=== PATIENT | female | born 1995 | race Caucasian/White ===

== ENCOUNTER 2017-11-27 04:46 | Emergency (ER) | payer OTHER, SELFPAY ==
[2017-11-27] MEDS: NS 1,000 ML IV ×2 (06:15)
[2017-11-27] MEDS: METOCLOPRAMIDE INJ 10MG/2ML VIAL (J2765) IV ×2 (06:15)
== END 2017-11-27 06:26 | disposition home or self-care (01) ==
LOC: M ED 04:46
DX: F10.929 Alcohol use, unspecified with intoxication, unspecified (principal); Z88.5 Allergy status to narcotic agent; Z91.040 Latex allergy status
CPT/HCPCS: 99283

== ENCOUNTER 2018-03-27 16:00 | Emergency (ER) | payer OTHER | END 2018-03-27 17:00 | disposition left against medical advice (07) | LOC: M ED 16:00 | DX: Z53.21 Procedure and treatment not carried out due to patient leaving prior to being seen by health care provider (principal) ==

== ENCOUNTER → 2018-11-04 | Outpatient (CLI) | payer OTHER ==
[~2018-11-04] MED LIST: MELA10TA4 PO; OLAN5TAB PO
[2018-11-04 11:34] LABS: HCG, SERUM QUALITATIVE POSITIVE (NEGATIVE)
[2018-11-04 11:35] LABS: HCG, SERUM QUANTITATIVE 71 MIU/ML
== END ==
LOC: M LAB 10:43
PROVIDERS: ATTEND Physician Assistant Medical
DX: N91.2 Amenorrhea, unspecified (principal)

== ENCOUNTER 2019-05-22 21:01 | Outpatient (CLI) | payer OTHER ==
[~2019-05-22] VITALS: Ht 154.9 cm; Wt 86.6 kg
[2019-05-22 21:15] VITALS: BP 110/66
[2019-05-22] MEDS ORDERED: LOPERAMIDE 2 MG CAP As Ordered ONE (21:53)
[2019-05-22] MEDS ORDERED: LOPERAMIDE 2 MG CAP PO ONE (22:00)
[2019-05-22] MEDS ORDERED: LOMOTIL 2.5MG/0.025MG TABLET PO ONE (22:00)
[2019-05-22 22:24] LABS: HEMOGLOBIN 13.3 g/dl (12.0-15.5); MEAN CORPUSCULAR HEMOGLOBIN 34.4 pg (27.0-33.0); MEAN CORPUSCULAR VOLUME 98.2 fl (80.0-96.0); PLATELET COUNT, AUTOMATED 241 10^3/uL (150-450); RED BLOOD COUNT 3.87 10^6/uL (4.00-5.40); WHITE BLOOD COUNT 9.8 10^3/uL (4.0-10.0)
[2019-05-22 22:36] LABS: BLOOD UREA NITROGEN 13 MG/DL (7-18); CALCIUM LEVEL 8.9 MG/DL (8.5-10.1); CARBON DIOXIDE LEVEL 23 MEQ/L (21-32); CHLORIDE LEVEL 107 MEQ/L (98-107); CREATININE FOR GFR 0.65 MG/DL (0.55-1.30); GLOMERULAR FILTRATION RATE > 60.0 (>60); GLUCOSE, FASTING 89 MG/DL (70-100); POTASSIUM SERUM 3.8 MEQ/L (3.5-5.1); SODIUM LEVEL 140 MEQ/L (136-145)
[2019-05-22 22:47] VITALS: BP 122/67
--- NOTE | 2019-05-23 05:01 | HPE ---
DATE OF ADMISSION: 05/22/2019 HISTORY: 23 old 1, para 0, last menstrual period (LMP) 09/28/2018, estimated date of confinement (EDC) 07/16/2019 at 32 and 1 weeks' gestation was seen today at [facility], comes in tonight with complaints of work area and environment is too hot; then need air-conditioning. She has had 5 days of diarrhea and she requests a note for being off work and requests a note for them to change the environmental environment. Risk factors she is a smoker, bipolar, body mass index (BMI) of 30.8 and she has tenia cruris. Labs are O+, human immunodeficiency virus (HIV) negative, hepatitis negative, RPR negative, rubella immune. Varicella immune. Pap normal. Urine negative. Gonorrhea and chlamydia negative. 1-hour glucose was 104 at 28 weeks, GTT was 91. On examination no distress. Symphysis fundus height is appropriate. Four quadrant bowel sounds. Category one strip. No decelerations, accelerations are noted. No contractions. No vaginal bleeding or loss. Her urine is 1.010 pH of eight negative nitrates, glucose, ketones are negative. Blood was negative. Electrolytes were normal. Anion gap was 10, hemoglobin 13.3, hematocrit 38.0, platelets 251. Temperature 97.5, respirations 18, pulse 82, blood pressure is 110/66. The rest of the examination unremarkable. Normocephalic, atraumatic. Neck: Full range of motion. Pupils equal and reactive to light. Distal pulses are symmetric. No evidence of deep vein thrombosis (DVT), pulmonary emboli (PE) or superficial phlebitis. Chest is clear bilaterally at the base. No wheezes or rhonchi. No costovertebral angle (CVA) tenderness. Abdomen is soft. Four quadrant bowel sounds are noted. Skin and because membranes are normal. No evidence of diarrhea since being here for 2 hours. She has tenia cruris, which is treated. No lesions or pruritus. No arthralgia or myalgia. No complaint of joint pain, cough, wheezes, shortness of breath or dyspnea on exertion. In summary, I have a 32-weeker with issues regarding workplace environment. No need for a note to be off work, was seen today in [facility], never mentioned any issues of same, was discharged to be with precautions regarding hydration. Continue with her centering, Kaopectate which she can get [id number]. We gave her one Imodium while here and the patient was discharged undelivered.
== END 2019-05-22 23:05 | disposition home or self-care (01) ==
LOC: M LDO 21:01
PROVIDERS: ATTEND Obstetrics & Gynecology
DX: O26.893 Other specified pregnancy related conditions, third trimester (principal); R19.7 Diarrhea, unspecified; R11.0 Nausea; Z3A.32 32 weeks gestation of pregnancy
CPT/HCPCS: 36415; 59025; 80048; 85027; G0378; G0463

== ENCOUNTER 2019-07-19 14:14 | Outpatient (CLI) | payer OTHER ==
[~2019-07-19] VITALS: Ht 154.9 cm; Wt 89.7 kg
[2019-07-19] MEDS ORDERED: BENA25CA4 PO (14:43)
[2019-07-19] MEDS ORDERED: PRENTAB9 PO (14:44)
--- NOTE | 2019-07-19 16:24 | IPNPDOC ---
Text Note Date of Service The patient was seen on 07/19/19. NOTE Mariza is a 24yo G1 at 40+3wks ([id number]) presents to L&D triage for headache, dizziness, lip numbness x 2 hrs. She reports that she had the dizziness yesterday, went away and then returned at night, but was resolved by morning. She reports that 2 hours ago, she started having a frontal headache, 3/10, that is throbbing. She has not tried anything to relieve symptoms, nothing makes worse. She reports some dizziness and lip numbness. She reports some photophobia. She denies nausea/vomiting. Reports good oral hydration of ~2L. She last are pizza 2 hours ago without issues. She denies syncope or presyncope. She reports sitting on Yoga Ball today, but activity has been minimal. She denies vision changes, right upper quadrant pain, regular contractions, vaginal bleeding, loss of fluid or decreased movement. PE: VSS: normotensive, nontachycardic, afebrile GEN: well nourished, well developed, no acute distress HEENT: PERRLA, EOMI CV: RRR, no m/g/r RESP: CTAB ABD: Gravid, soft, NT NEURO: CN II-XII intact, +5/5 upper extremity Strength bilaterally, +2-3 DTRs FHT: Reactive NST, 140 bpm, moderate variability, + accelerations, - dece lerations Broussard: sporatic contractions, palpate soft A/P: SIUP at 40wks with headache, dizziness, and lip numbness. Discussed with patient that given normal blood pressure, suspicion for pre eclampsia is low. Do not suspect dehydration or hypoglycemia. Discussed recommendation of trying Tylenol 1000mg (q6-8hrs and not exceeding 3000mg in 24hrs) to relieve symptoms. No current signs of labor. Gave patient option to receive medication prior to discharge, however, patient wanting to go home to take try Tylenol and will call/return if symptoms worsen or do not resolve. - Strict return precautions were given - Labor precautions were discussed - Discussed kick counts - Encourage Hydration - Induction is scheduled Tuesday for pending post dates DO YESI Davis CRYSTAL B. DO Jul 19, 2019 16:24
== END 2019-07-19 15:47 | disposition home or self-care (01) ==
LOC: M LDO 14:14
PROVIDERS: ATTEND Obstetrics & Gynecology
DX: O26.893 Other specified pregnancy related conditions, third trimester (principal); R42 Dizziness and giddiness; R51 Headache; R20.2 Paresthesia of skin; Z3A.40 40 weeks gestation of pregnancy
CPT/HCPCS: 59025; G0378; G0463

== ENCOUNTER 2019-07-22 03:20 | Inpatient (IN) | payer OTHER ==
[2019-07-22] VITALS (8 sets, daily range): BP systolic 96–127; BP diastolic 58–80
[~2019-07-22] VITALS: Ht 152.4 cm; Wt 89.3 kg
[~2019-07-22 03:20] MED LIST changes: +BENA25CA4 PO; +PRENTAB9 PO
[2019-07-22] MEDS: LR 1,000 ML IV SCH ×4 (04:12→20:44)
--- NOTE | 2019-07-22 04:45 | HPEPDOC ---
Obstetrical History & Physical General Date of Admission Jul 22, 2019 at 03:56 History of Present Illness OB considerations: - Quit smoking during - BiPolar - self d/c'd Zyprexa - Class 1 Obesity - prepregnancy BMI 30 - Patricio Parnell @ 29wks Mariza is a 24yo G1 at 40+6wks by 8wk US (MURTAZA [id number]) presents grossly ruptured. She felt her water break at 0300 08Sep, which was noted to be clear. She notes irregular contractions. She denies vaginal bleeding. Reports movement. Antepartum complicated by the above problems. 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 Past Medical History Medical History Bipolar Nicotine Dependence - quit smoking during Class 1 Obesity Surgical History: Gallbladder (Laparoscopically), Tonsilectomy, [place] teeth, Other (Ganglion Cyst removal) Family History Significant Family History: No pertinent family hx Social History Marital Status: Family situation: Spouse/partner home * Smoker: former Smoker Alcohol: Denies Drugs: denies Imunizations Tdap status: current Influenza Status: declined Allergies Coded Allergies: latex (Verified Allergy, Severe, hives, 05/22/19) morphine (Verified Allergy, Intermediate, itching, 05/22/19) Medications Scheduled Diphenhydramine HCl (Benadryl) 25 Mg Capsule, 25 MG PO QPM No.137/Iron/Folic Acd ( Vitamin Tablet) 1 Each Tablet, 1 TAB PO DAILY Physical Examination Physical Examination GENERAL: Alert and oriented times three. ABDOMEN: Gravid and non-tender to touch. FETUS: Is vertex (VTX) by sterile vaginal examination (SVE), fetus is vertex (VTX) by Carmelo. EXTREMITIES: No edema. EFW 3800gm Laboratory Data 24H LABS Laboratory Tests 2 07/22/19 03:59: Serology Scanned Report Hepatitis B Testing CBC/BMP HCT 41.2 PLT 387 Microbiology Pap: WNL Urine Culture: No Growth Pertinent Laboratoy Data Blood Type: O+ RBC Antibody Screen: Negative HIV: Negative Hepatitis B: Negative Hepatitis C: Unknown Rapid Plasma Reagin: Nonreactive Rubella: Immune Varicella: Immune Chlamydia/Gonorrhea: Negative Group B Streptococcus: Negative Quad Screen Test: Unknown Cystic Fibrosis: Unknown Anatomy Ultrasound Ultrasound Date: Feb 28, 2019 Placenta Location: Posterior Normal Anatomy: Yes Placenta Previa: No Steroid Therapy Steroid Therapy: No Vaginal Examination Dilation: 2cm Effacement: 70% Station: -2 Cervical Consistency: Soft Cervical Position: Posterior Presentation: Cephalic presentation Position: Vertex (occiput) Assessment Heart Rate (FHR): 130 Variability: Moderate Accelerations: Positive Decelerations: None Tocometer Contractions: Yes Frequency: irregular Assessment/Plan Assessment Mariza is a [24]-year-old (G)[1] at [40]+[6] weeks by [8]-week ultrasound. Presents to Labor and Delivery (L&D) for [PROM]. Plan Admit and orient. Psychologist Personnel and consent, verbally. Diet: [Clear]. Group B Streptococcus (GBS) [negative]. Labs and intravenous (IV) per unit protocol. Counseled on Pitocin and induction of labor (IOL). Lactated Ringers (LR): [125] mL/hr. MakuCell Saldaña Catheter placed, 80ml of NS uterine balloon. Start Pitocin when Catheter delivers. Bianca Key DO Labor and Delivery Counseling Discussed admission with patient. Discussed R/B/I/A. Discussed induction methods to include Saldaña Balloon and Oxytocin. Discussed monitoring with patient, to include internal monitors (FSE and IUPC) and indications. Discussed blood transfusions and indications/risks - patient would accept. Discussed vaginal delivery and indicated/risk of operative vaginal delivery. Discussed indications for section. Patient verbally consented to delivery and verbalized understanding. BIANCA KEY DO Jul 22, 2019 04:45
[2019-07-22] MEDS ORDERED: OXYTOCIN DRIP 30 UNITS in APPROPRIATE DILUENT 1 EA IV SCH (05:00)
[2019-07-22 05:15] LABS: HEMATOCRIT 41.1 % (36.0-47.0); HEMOGLOBIN 14.5 g/dl (12.0-15.5); MEAN CORPUSCULAR HEMOGLOBIN 34.1 pg (27.0-33.0); MEAN CORPUSCULAR HGB CONC 35.3 g/dl (32.0-36.5); MEAN CORPUSCULAR VOLUME 96.7 fl (80.0-96.0); PLATELET COUNT, AUTOMATED 228 10^3/uL (150-450); RED BLOOD COUNT 4.25 10^6/uL (4.00-5.40); WHITE BLOOD COUNT 10.1 10^3/uL (4.0-10.0)
[2019-07-22] MEDS ORDERED: ONDANSETRON 4MG/2ML VIAL (J2405) IV ONE (08:00)
--- NOTE | 2019-07-22 14:50 | IPNPDOC ---
Text Note Date of Service The patient was seen on 07/22/19. NOTE Went to check patient and discuss tracing. Discussed that I was unable to augment her labor due to recurrent variable decelerations with contractions, that resolved with Pitocin stop, but not with conservative management of position changes and IVFs. She is 5/50/-2 from Saldaña Catheter which need to be deflated by 40ml of fluid prior to delivery of the balloon. I discussed that we could try IUPC but if unable to correct variables would result in section for nonaugmentable tracing with persistent category II tracing. She declines IUPC and desired to proceed with section with Category II tracing. R/B/I/A were reviewed with the patient and consent was obtained. All questions were answered at this time. VS,Keila, I+O VS, Keila, I+O Laboratory Tests 07/22/19 04:37 Red Blood Count 4.25, Mean Corpuscular Volume 96.7 H, Mean Corpuscular Hemoglobin 34.1 H, Mean Corpuscular Hemoglobin Concent 35.3, Red Cell Distribution Width 12.2 Vital Signs Date Time Temp Pulse Resp B/P (MAP) Pulse Ox O2 Delivery O2 Flow Rate FiO2 07/22/19 11:04 98.3 91 18 127/59 (81) JERICHO KEY DO Jul 22, 2019 14:50
[2019-07-22] MEDS ORDERED: AZITHROMYCIN INJ 500 MG, VIAL MATE ADAPTER 1 EACH in D5W 250 ML IV ONE (15:00)
[2019-07-22] MEDS ORDERED: BICITRA 30ML SOLN UDC PO ONE (15:00)
[2019-07-22] MEDS ORDERED: AZITHROMYCIN INJ 500MG VIAL (J0456) As Ordered ONE (15:01)
[2019-07-22] MEDS ORDERED: ceFAZolin 2 GM/D5W 50 ML IV BAG (J0690 PER 500MG) As Ordered ONE (15:01)
[2019-07-22] MEDS ORDERED: BICITRA 30ML SOLN UDC As Ordered ONE (15:02)
[2019-07-22] MEDS ORDERED: BUPIVACAINE HCL 0.25% 10 ML VIAL As Ordered ONE (15:23)
[2019-07-22] MEDS ORDERED: DOCUSATE SODIUM 100 MG CAP PO PRN (15:30)
[2019-07-22] MEDS ORDERED: RHOGAM 300 MCG (1500 IU) INJ (J2790) IM SCH (15:30)
[2019-07-22] MEDS ORDERED: MEASLES,MUMPS,RUBELLA VACCINE INJ (MMR-II) (90707) SC SCH (15:30)
[2019-07-22] MEDS ORDERED: ONDANSETRON 4MG/2ML VIAL (J2405) IV PRN ×2 (15:30→16:45)
[2019-07-22] MEDS ORDERED: PROMETHAZINE 25 MG TAB PO PRN (15:30)
[2019-07-22] MEDS ORDERED: BUPIVACAINE HCL 0.25% 10 ML VIAL INFIL ONE (15:30)
[2019-07-22] MEDS ORDERED: PHENYLephrine HCL 500 MCG/5 ML (100MCG/ML) SYRINGE (J2370) As Ordered ONE (15:44)
[2019-07-22] MEDS ORDERED: OXYTOCIN INJ 10 UNITS/ML VIAL (J2590) As Ordered ONE (15:44)
[2019-07-22] MEDS ORDERED: ONDANSETRON 4MG/2ML VIAL (J2405) As Ordered ONE (15:44)
[2019-07-22] MEDS ORDERED: dexameTHASONE 4 MG/ML 1ML VIAL (J1100) As Ordered ONE (15:44)
[2019-07-22] MEDS ORDERED: KETOROLAC 60 MG/2 ML VIAL (J1885) As Ordered ONE (15:44)
[2019-07-22] MEDS ORDERED: ACETAMINOPHEN 1000MG 100ML IV BTL (OFIRMEV) (J0131 PER 10MG) As Ordered ONE (16:14)
[2019-07-22] MEDS ORDERED: MEPERIDINE INJ 25 MG/ML VIAL (J2175) IV PRN (16:45)
[2019-07-22] MEDS ORDERED: METOCLOPRAMIDE INJ 10MG/2ML VIAL (J2765) IV PRN (16:45)
[2019-07-22] MEDS ORDERED: fentaNYL 100 MCG/2 ML INJECTION (J3010) IV PRN (16:45)
[2019-07-22] MEDS ORDERED: PERCOCET 5MG/325MG TAB PO PRN (16:45)
[2019-07-22] MEDS ORDERED: LR 1,000 ML IV SCH (16:45)
--- NOTE | 2019-07-22 20:59 | POST-OPPD ---
Postoperative Procedure Note Date Of Procedure: Jul 22, 2019 PREOPERATIVE DIAGNOSIS: 1. SIUP at 40+6wks 2. Nonreassuring tracing, persistent category II remote from delivery and unable to augment labor 3. Nicotine Dependence 4. Obesity POSTOPERATIVE DIAGNOSIS: 1. SIUP at 40+6wks 2. Nonreassuring tracing, persistent category II remote from delivery and unable to augment labor 3. Nicotine Dependence 4. Obesity 5. Viable Female , APGARs 9/9, Wt 3400gm FINDINGS: Low transverse incision, normal appearing uterus tubes and ovaries. SPECIMENS: placenta ESTIMATED BLOOD LOSS: 600cc URINE OUTPUT: 120cc MEDICATIONS: Ancef 2gm, Azithryomycin 500mg, 10ml 0.25% Marcaine DRAINS: Saldaña COMPLICATIONS: none JERICHO KEY DO Jul 22, 2019 20:50
[2019-07-22] MEDS: KETOROLAC 30 MG/ML VIAL (J1885) IV SCH (22:17)
[2019-07-23 02:00] VITALS: BP 100/55
[2019-07-23] MEDS: KETOROLAC 30 MG/ML VIAL (J1885) IV SCH ×2 (04:20→09:59)
[2019-07-23] MEDS: LR 1,000 ML IV SCH (04:20)
[2019-07-23] MEDS ORDERED: NORCO, ANEXSIA 5/325MG TABLET (HYDROcodone/ACETAMINOPHEN) PO PRN (05:30)
[2019-07-23 06:00] VITALS: BP 98/58
[2019-07-23 07:08] LABS: HEMATOCRIT 35.1 % (36.0-47.0); HEMOGLOBIN 12.1 g/dl (12.0-15.5); MEAN CORPUSCULAR HEMOGLOBIN 32.9 pg (27.0-33.0); MEAN CORPUSCULAR HGB CONC 34.5 g/dl (32.0-36.5); MEAN CORPUSCULAR VOLUME 95.4 fl (80.0-96.0); PLATELET COUNT, AUTOMATED 245 10^3/uL (150-450); RED BLOOD COUNT 3.68 10^6/uL (4.00-5.40); WHITE BLOOD COUNT 15.5 10^3/uL (4.0-10.0)
--- NOTE | 2019-07-23 07:31 | IPNPDOC ---
Progress Note Date of Service: Jul 23, 2019 Day#: 1 Progress Note SUBJECT: Mariza is a 24yo [id number] s/p uncomplicated primary low transverse section at 40+6wks status for persistent cat II tracing on [23Jul2019] of a [Female] [3400] grams, doing well day # [1]. She has been ambulating, Saldaña removed, needs to meet due to void and tolerating regular diet. Breast feeding without issue. Reports lochia is [like a normal period]. [Reports some cramping with . Denies any pain. Voiding and passing flatus]. OBJECTIVE: VITAL SIGNS: Within normal limits, afebrile. Alert and oriented times three. Breath sounds clear to auscultation. Heart rate: Regular rate and rhythm, no murmurs, rubs or gallops. Abdomen: Fundus firm at U. Soft, NTTP. [Minimal] lochia. ASSESSMENT: Mariza is a 24yo [id number] s/p uncomplicated primary low transverse section at 40+6wks status for persistent cat II tracing on [23Jul2019], doing well on day [1]. Vitals within normal limits, afebrile, hemodynamically stable with no evidence of infection. PLAN: 1. Discharge to home tomorrow. 2. Continue pain control: Toradol to Motrin transition, [place] 3. Encourage breast feeding and ambulation. 4. [IUD] for contraception. 5. Continue routine care. 6. Due to Void 4 hours after Saldaña removal, if unable to void, Straight Catheter with new due to void. If failed second due to void, replace Saldaña for 24 hours. Bianca Key, VS, I&O, 24H, Keila Vital Signs/I&O Vital Signs Date Time Temp Pulse Resp B/P (MAP) Pulse Ox O2 Delivery O2 Flow Rate FiO2 07/23/19 06:00 98.2 102 16 98/58 (71) 97 I&O- Last 24 Hours up to 6 AM 07/23/19 06:00 Intake Total 4695 ml Output Total 5750 ml Balance -1055 ml Laboratory Data 24H LABS Laboratory Tests 2 07/23/19 06:18: Nucleated Red Blood Cells % (auto) 0.0 CBC/BMP Laboratory Tests 07/23/19 06:18 Red Blood Count 3.68 L, Mean Corpuscular Volume 95.4, Mean Corpuscular Hemoglobin 32.9, Mean Corpuscular Hemoglobin Concent 34.5, Red Cell Distribution Width 12.4 BIANCA KEY DO Jul 23, 2019 07:31
--- NOTE | 2019-07-23 08:19 | RO ---
DATE OF PROCEDURE: PREPROCEDURE DIAGNOSES: 1. Single intrauterine at 40 weeks and 6 days gestation. 2. Non-reassuring heart tracing persistent category 2 remote from delivery and unable to augment labor. 3. Nicotine dependence. 4. Obesity. POSTPROCEDURE DIAGNOSES: 1. Single intrauterine at 40 weeks and 6 days gestation. 2. Non-reassuring heart rate tracing persistent category 2 remote from delivery and unable to augment labor. 3. Nicotine dependence. 4. Obesity. 5. Viable female , Apgars were 9 and 9, weight 3400 grams. PROCEDURE: Primary low transverse section. SURGEON: Dr. Bianca Cuevas ARTIFICIAL BREEDING DISTRIBUTOR: Dr. Jodi Pinedo. ANESTHESIA: Paul Elizabeth CRNA. SPECIMENS: Placenta. ESTIMATED BLOOD LOSS: 600 mL. MEDICATIONS: Patient received Ancef 2 grams, azithromycin 500 mg IV prior to incision. 10 mL 0.25% Marcaine was injected along the incision at the end of the procedure and then patient received Pitocin per protocol. FINDINGS: Low transverse incision, normal appearing uterus, fallopian tubes and ovaries. URINE OUTPUT: 120 mL. ESTIMATED BLOOD LOSS: 600 mL DRAINS: Saldaña catheter. COMPLICATIONS: None noted. INDICATIONS FOR PROCEDURE: Mariza is a 24-year-old 1 at 40 weeks and 6 days gestation who presented in labor for prelabor rupture of membranes. She was noted along her augmentation course to have variable decelerations with contractions and we were unable to augment her labor. Mariza declined to use of an intrauterine pressure catheter (IUPC) with an amnioinfusion and elected proceed with delivery via section for persistent category 2 remote from delivery unable to augment. DESCRIPTION OF PROCEDURE: Risks benefits, indications and alternatives of the procedure were discussed with the patient. The patient was taken to the delivery room with an IV running. She was then placed in the supine position with a leftward til after spinal was placed and found to be adequate. She had a Saldaña catheter placed at this time. The lower uterine skin incision was made 2 cm above the pubic symphysis and 3 cm away from the anterior superior iliac spine using sharp carried down to the level of the fascia. The fascia was then incised and sharply extended superiorly and inferiorly. The peritoneum was then entered both bluntly and sharply and the muscles bellies were stretched. A bladder blade was inserted. A bladder flap was created using Prussians and Metzenbaum scissors and the bladder blade was then reinserted to protect the bladder. A lower intrauterine incision was made and extended laterally manually. The head was then delivered atraumatically followed by the rest of the body. The cord was then doubly clamped and cut by the provide and the was then taken to the warmer by Dr. Pinedo. The placenta delivered with gentle traction. Uterus was then exteriorized and cleared of all clot and debris. The hysterotomy was closed with 0 Vicryl in a running locking stitch and was noted to be hemostatic. The posterior cul-de-sac was then cleared of all clot and debris. The hysterotomy again, upon inspection appeared to be hemostatic and the uterus was then replaced back into the abdomen. The pericolic gutters were cleared of clot and debride and again upon inspection of the hysterotomy appeared to be hemostatic. The inspection of the muscle bellies were hemostatic as well and the fascia was closed with 0 Vicryl in a running fashion. Irrigation of the subcutaneous tissue was noted. We closed the subcutaneous fascia with a #2-0 Vicryl interrupted and the skin was closed with #4-0 Monocryl in a subcuticular running fashion. The patient tolerated the procedure well. She received Ancef and azithromycin for preoperative antibiotics, receive oxytocin per protocol. I also injected 0.2% Marcaine along the incision line after closure of the skin. All laps, needles and instrument counts were correct times two. The patient was taken to the recovery room in stable condition. There no complications noted at this time.
[2019-07-23] MEDS: PRENATAL VITAMINS CHEWABLE TABLET PO SCH (08:44)
[2019-07-23] MEDS ORDERED: ADACEL/BOOSTRIX VACCINE (DIPHTH/PERTUSS/ACELL/TETANUS)0.5ML SYR (90715) IM ONE (09:00)
[2019-07-23 10:00] VITALS: BP 123/57
[2019-07-23 13:56] VITALS: BP 106/61
[2019-07-23] MEDS: NORCO, ANEXSIA 5/325MG TABLET (HYDROcodone/ACETAMINOPHEN) PO PRN (15:38)
[2019-07-23 17:46] VITALS: BP 112/71
[2019-07-23] MEDS: IBUPROFEN 800 MG TAB PO SCH (18:09)
[2019-07-23 22:00] VITALS: BP 123/71
[2019-07-24] MEDS: IBUPROFEN 800 MG TAB PO SCH ×2 (01:57→08:59)
[2019-07-24 02:00] VITALS: BP 120/67
[2019-07-24] MEDS: NORCO, ANEXSIA 5/325MG TABLET (HYDROcodone/ACETAMINOPHEN) PO PRN (05:15)
[2019-07-24 06:00] VITALS: BP 102/64
[2019-07-24] MEDS: LR 1,000 ML IV SCH (07:15)
[2019-07-24] MEDS: PRENATAL VITAMINS CHEWABLE TABLET PO SCH (08:59)
[2019-07-24] MEDS ORDERED: IBUP80TA PO (09:05)
[2019-07-24] MEDS ORDERED: MIRA3350 PO (09:05)
[2019-07-24] MEDS ORDERED: HYDR-4571 PO (09:05)
[2019-07-24] MEDS ORDERED: COLA100C5 PO (09:26)
--- NOTE | 2019-07-24 09:39 | DS.PDOC ---
Discharge Summary General Date of Admission Jul 22, 2019 at 03:56 Date of Discharge Jul 24, 2019 Attending Physician: JERICHO KEY DO Discharge Summary PROCEDURES PERFORMED DURING STAY: [None]. ADMITTING DIAGNOSES: 1. [Prelabor Rupture of Memebranes]. DISCHARGE DIAGNOSES: 1. [Single Live ]. 2. [ Delivery]. COMPLICATIONS/CHIEF COMPLAINT: LABOR. HISTORY OF PRESENT ILLNESS: Mariza is a 24yo who presented with Prelabor Rupture of Membranes at 40+6wks on 22Jul2019. HOSPITAL COURSE: Mariza is a 24yo [id number] status post uncomplicated primary low transverse section at 40+6wks status for persistent cat II tracing on [23Jul2019] of a [Female] [3400] grams. She has ambulated without difficulty, pain is controlled with oral medications, voiding spontaneously, tolerating a regular diet and has normal bowel function. She has remained afebrile and vitals stable through out her hospital stay. She has met all criteria for discharge on postoperative/ day 2. DISCHARGE MEDICATIONS: Please see below. ALLERGIES: Please see below. PHYSICAL EXAMINATION ON DISCHARGE: VITAL SIGNS: Please see below. GENERAL: [WNWD, NAD] HEENT: [EOMI, normal conjunctiva] NECK: [supple] CARDIOVASCULAR EXAMINATION: [no edema] RESPIRATORY EXAMINATION: [no respiratory distress, no tripoding] ABDOMINAL EXAMINATION: [Soft, Appropriately Tender, no peritoneal signs, uterus U-2] EXTREMITIES: [trace edema] INCISION: [C/D/O] NEUROLOGICAL EXAMINATION: [A&O, CN II-XII grossly intact] PSYCHIATRIC EXAMINATION: [normal mood and affect] LABORATORY DATA: Please see below. PROGNOSIS: [good] ACTIVITY: [As tolerated]. DIET: [regular] DISCHARGE PLAN: [home] DISPOSITION: home in stable condition. DISCHARGE: 1. Discharge to home today. 2. Continue pain control: Motrin, [place] 3. Miralax ordered for bowel regime. 4. Encourage ambulation. 5. [IUD] for contraception. 6. Bottle feeding 7. Continue routine care. 8. Discussed signs and symptoms of mastitis, hemorrhage, surgical infection, depression ITEMS TO FOLLOWUP ON ON OUTPATIENT: 1. Follow up in 2 weeks for incision check, then in 6 weeks for routine visit DISCHARGE CONDITION: [Stable]. TIME SPENT ON DISCHARGE: Greater than [20] minutes. Vital Signs/I&Os Vital Signs Date Time Temp Pulse Resp B/P (MAP) Pulse Ox O2 Delivery O2 Flow Rate FiO2 07/24/19 08:26 18 07/24/19 06:00 97.4 82 102/64 (77) 98 I&O- Last 24 Hours up to 6 AM 07/24/19 05:59 Intake Total 1500 ml Output Total 550 ml Balance 950 ml Laboratory Data CBC/BMP Initial HCT 41, Postoperative HCT 35 Discharge Medications Scheduled Diphenhydramine HCl (Benadryl) 25 Mg Capsule, 25 MG PO QPM, (Reported) Ibuprofen (Ibuprofen) 800 Mg Tablet, 800 MG PO Q8H Take with food Polyethylene Glycol 3350 (Miralax) 119 Gm Powder, 17 GRAM PO BID for constipation Take twice a day until first bowel movement, then daily for soft stool, dissolve in water, hold medications for loose stools No.137/Iron/Folic Acd ( Vitamin Tablet) 1 Each Tablet, 1 TAB PO DAILY, (Reported) Scheduled PRN Docusate Sodium (Colace) 100 Mg Capsule, 100 MG PO QHSP PRN for CONSTIPATION Hydrocodone/Acetaminophen (Hydrocodone-Acetamin 5-325 mg) 1 Each Tablet, 1-2 TAB PO Q6HP PRN for SEVERE PAIN (PS 8-10) Allergies Coded Allergies: latex (Verified Allergy, Severe, hives, 05/22/19) morphine (Verified Allergy, Intermediate, itching, 05/22/19) JERICHO KEY DO Jul 24, 2019 09:38
== END 2019-07-24 12:40 | disposition home or self-care (01) | DRG 773 ==
LOC: M LDO 03:20 → M LDI 03:56 → M OBS 17:45
PROVIDERS: ADMIT Obstetrics & Gynecology; ATTEND Obstetrics & Gynecology
PROC: 10D00Z1 Extraction of Products of Conception, Low, Open Approach (ICD-10-PCS; principal; 2019-07-22 15:46)
DX: O42.02 Full-term premature rupture of membranes, onset of labor within 24 hours of rupture (principal); O48.0 Post-term pregnancy; Z3A.40 40 weeks gestation of pregnancy; Z37.0 Single live birth; O99.214 Obesity complicating childbirth; E66.9 Obesity, unspecified; O76 Abnormality in fetal heart rate and rhythm complicating labor and delivery

== ENCOUNTER 2019-08-26 08:14 | Emergency (ER) | payer OTHER ==
[~2019-08-26] VITALS: Ht 152.4 cm; Wt 86.5 kg
[~2019-08-26 08:14] MED LIST changes: +COLA100C5 PO; +HYDR-4571 PO; +IBUP80TA PO; +MIRA3350 PO
[2019-08-26] MEDS ORDERED: ACET-683 PO (08:23)
[2019-08-26] MEDS ORDERED: CLAR10CA3 PO (08:23)
[2019-08-26 09:18] LABS: HEMATOCRIT 42.1 % (36.0-47.0); MEAN CORPUSCULAR HEMOGLOBIN 32.9 pg (27.0-33.0); MEAN CORPUSCULAR HGB CONC 33.3 g/dl (32.0-36.5); MEAN CORPUSCULAR VOLUME 99.1 fl (80.0-96.0); PLATELET COUNT, AUTOMATED 303 10^3/uL (150-450); RED BLOOD COUNT 4.25 10^6/uL (4.00-5.40); WHITE BLOOD COUNT 8.5 10^3/uL (4.0-10.0)
[2019-08-26 09:58] VITALS: BP 119/76
--- NOTE | 2019-08-26 10:14 | REP ---
REASON: Assess for post seroma. No priors. Ultrasonographic evaluation of the region of interest shows no cystic or solid masses. There is no evidence of abnormal fluid collection that would be considered consistent with a seroma. IMPRESSION: Negative exam. Electronically Signed by Carlin Calderon DO 08/26/2019 10:56 A
== END 2019-08-26 09:58 | disposition home or self-care (01) ==
LOC: M ED 08:14
DX: O75.4 Other complications of obstetric surgery and procedures (principal); Z79.899 Other long term (current) drug therapy; Z88.5 Allergy status to narcotic agent; Z91.040 Latex allergy status

== ENCOUNTER 2020-06-11 10:45 | Day surgery (SDC) | payer OTHER ==
[~2020-06-11 10:45] MED LIST changes: +ACET-683 PO; +CLAR10CA3 PO
--- NOTE | 2020-07-23 11:26 | ROOR ---
Patient Name: Mariza Doty Procedure Date: 06/11/2020 11:37 AM Date of : 1995 Age: 24 Room: [facility] Gender: Female Note Status: Finalized Procedure: Upper Endoscopy + Biopsies Indications: Heartburn, Exclusion of Christy's esophagus Providers: Kyle Freeman MD Referring MD: CHARIS VIZCAINO MD Requesting Provider: Medicines: Monitored Anesthesia Care Complications: No immediate complications. Procedure: Pre-Anesthesia Assessment: - The heart rate, respiratory rate, oxygen saturations, blood pressure, adequacy of pulmonary ventilation, and response to care were monitored throughout the procedure. The Endoscope was introduced through the mouth, and advanced to the second part of duodenum. The upper GI endoscopy was accomplished without difficulty. The patient tolerated the procedure well. Findings: The Z-line was variable and was found 35 cm from the incisors. Multiple biopsies were obtained with cold forceps for evaluation to rule out Christy's Esophagus randomly at the gastroesophageal junction. No other significant abnormalities were identified in a careful examination of the stomach. The exam of the duodenum was otherwise normal. Impression: - Z-line variable, 35 cm from the incisors. - Multiple biopsies were obtained at the gastroesophageal junction. - The examination was otherwise normal. Recommendation: - Patient has a contact number available for emergencies. The signs and symptoms of potential delayed complications were discussed with the patient. Return to normal activities tomorrow. Written discharge instructions were provided to the patient. - High fiber diet. - Discharge patient to home. - Follow an antireflux regimen. - Continue present medications. - Await pathology results. - Telephone GI office for pathology results in 1 week. - The findings and recommendations were discussed with the patient. Kyle Freeman MD Kyle Freeman MD 06/11/2020 11:48:55 AM Electronically signed by Kyle Freeman MD Number of Addenda: 0 Note Initiated On: 06/11/2020 11:37 AM Estimated Blood Loss: Estimated blood loss: none.
--- NOTE | 2020-07-23 11:26 | ROOR ---
Patient Name: Mariza Doty Procedure Date: 06/11/2020 11:35 AM Date of : 1995 Age: 24 Room: [facility] Gender: Female Note Status: Patient Financial Advocate Override Procedure: Total Colonoscopy to Cecum + Ileoscopy + Bx. Indications: Generalized abdominal pain, Lower abdominal pain, Change in bowel habits Providers: Kyle Freeman MD Referring MD: CHARIS VIZCAINO MD Requesting Provider: Medicines: Monitored Anesthesia Care Complications: No immediate complications. Procedure: Pre-Anesthesia Assessment: - The heart rate, respiratory rate, oxygen saturations, blood pressure, adequacy of pulmonary ventilation, and response to care were monitored throughout the procedure. The Colonoscope was introduced through the anus and advanced to the terminal ileum, with identification of the appendiceal orifice and IC valve. The colonoscopy was performed without difficulty. The patient tolerated the procedure well. The quality of the bowel preparation was excellent. Findings: The perianal and digital rectal examinations were normal. No other significant abnormalities were identified in a careful examination of the remainder of the colon. The terminal ileum appeared normal. Biopsies for histology were taken with a cold forceps from the ascending colon, transverse colon and descending colon for evaluation of microscopic colitis. The exam was otherwise without abnormality on direct and retroflexion views. Impression: - The examined portion of the ileum was normal. - The examination was otherwise normal on direct and retroflexion views. - Biopsies were taken with a cold forceps from the ascending colon, transverse colon and descending colon for evaluation of microscopic colitis. - The exam was otherwise normal to the cecum. Recommendation: - Patient has a contact number available for emergencies. The signs and symptoms of potential delayed complications were discussed with the patient. Return to normal activities tomorrow. Written discharge instructions were provided to the patient. - High fiber diet. - Discharge patient to home. - Continue present medications. - Await pathology results. - Telephone GI clinic for pathology results in 1 week. - Repeat colonoscopy at age 51 for screening purposes. - Return to referring physician. - The findings and recommendations were discussed with the patient. Kyle Freeman MD Kyle Freeman MD 06/11/2020 12:01:18 PM Electronically signed by Kyle Freeman MD Number of Addenda: 0 Note Initiated On: 06/11/2020 11:35 AM Estimated Blood Loss: Estimated blood loss: none.
== END 2020-06-11 12:27 | disposition home or self-care (01) ==
LOC: M OPP 10:45
PROVIDERS: ATTEND Internal Medicine Gastroenterology
DX: R10.84 Generalized abdominal pain (principal); K21.9 Gastro-esophageal reflux disease without esophagitis; R12 Heartburn; K22.8 Other specified diseases of esophagus; F17.210 Nicotine dependence, cigarettes, uncomplicated; K62.5 Hemorrhage of anus and rectum; Z91.040 Latex allergy status